=== PATIENT | female | born 1965 | race African-American/Black ===

== ENCOUNTER 2020-08-29 00:55 | Emergency (ER) | payer MEDICARE, MEDICAID ==
[~2020-08-29] VITALS: Ht 170.2 cm; Wt 115.7 kg
[2020-08-29 00:56] VITALS: BP 136/80
== END 2020-08-29 03:26 | disposition left against medical advice (07) ==
LOC: ER 00:58
DX: R45.851 Suicidal ideations (principal); Z53.21 Procedure and treatment not carried out due to patient leaving prior to being seen by health care provider